=== PATIENT | male | born 1990 | race Two or more races ===

== ENCOUNTER 2020-02-08 09:10 | Emergency (ER) | payer OTHER ==
[~2020-02-08] VITALS: Ht 162.6 cm; Wt 63.5 kg
[2020-02-08] MEDS ORDERED: NORFLEX100MG PO (15:10)
== END 2020-02-08 16:59 | disposition home or self-care (01) ==
LOC: ER 09:10
DX: M54.2 Cervicalgia (principal); R51 Headache; Z03.818 Encounter for observation for suspected exposure to other biological agents ruled out

== ENCOUNTER 2020-02-15 10:26 | Outpatient (CLI) | payer OTHER ==
[~2020-02-15 10:26] MED LIST: NORFLEX100MG PO
== END 2020-02-15 11:02 | disposition home or self-care (01) ==
LOC: MRI 10:26
PROVIDERS: ATTEND General Practice
DX: G93.89 Other specified disorders of brain (principal); R51 Headache